=== PATIENT | male | born 1950 | race Caucasian/White ===

== ENCOUNTER 2017-05-27 06:27 | Day surgery (SDC) | payer OTHER ==
[2017-05-27] MEDS ORDERED: Bupivacaine 0.5%/EPINEPHrine 1:200,000 50 ML MDV ONE (06:43)
[2017-05-27] MEDS ORDERED: ceFAZolin 2 GM in Premix Bag 1 BAG IV ONE (07:00)
[2017-05-27] MEDS ORDERED: ceFAZolin 2 GM in Sodium Chloride 0.9% 50 ML IV ONE (07:00)
[2017-05-27] MEDS ORDERED: metroNIDAZOLE/Normal Saline 500 MG in Premix Bag 1 BAG IV ONE (07:00)
[2017-05-27] MEDS ORDERED: Sodium Chloride 0.9% 1,000 ML IV SCH (07:00)
[2017-05-27] MEDS ORDERED: fentaNYL 250 MCG/5 ML SDV ONE (07:13)
[2017-05-27] MEDS ORDERED: Propofol 200 MG/20 ML SDV ONE (07:14)
[2017-05-27] MEDS ORDERED: Succinylcholine/Normal Saline 200 MG/10 ML Syringe ONE (07:14)
[2017-05-27] MEDS ORDERED: Neostigmine Methylsulfate 1 MG/ML 5 ML Syringe ONE (07:14)
[2017-05-27] MEDS ORDERED: Rocuronium 50 MG/5 ML Vial ONE (07:14)
[2017-05-27] MEDS ORDERED: Dexamethasone 4 MG/ML SDV ONE (07:14)
[2017-05-27] MEDS ORDERED: Ondansetron 4 MG/2 ML SDV ONE (07:14)
[2017-05-27] MEDS ORDERED: fentaNYL 100 MCG/2 ML SDV IVPUSH ONE (09:08)
[2017-05-27] MEDS ORDERED: hydrOXYzine HCl 100 MG/2 ML SDV IM ONE (09:30)
[2017-05-27] MEDS ORDERED: oxyCODONE 5 MG Tab PO ONE (10:10)
[2017-05-27 10:34] VITALS: BP 162/74
--- NOTE | 2017-05-27 10:52 | OR ---
DATE OF PROCEDURE: 05/27/2017 PROCEDURE: Open inguinal hernia repair, right. COMPLICATIONS: None. SURGICAL NURSE: None. PREOPERATIVE DIAGNOSIS: Incarcerated hernia, right. RISKS: Risks, benefits, alternatives, limitations including infection, bleeding, and perforation of abdominal structures, recurrent surgery scar formation, other risks were explained to the patient and wished to proceed. PROCEDURE IN DETAIL: The patient was placed in supine position. A right curvilinear incision was made lateral to the pubic tubercle. This was over his area of hernia. This was carried down with electrocautery using 80. The external oblique aponeurosis was opened with a 15 blade. The hernia was readily identified and was actually quite large, requiring two extra-large plugs. Oralia drain was used to surround the cord structure. The large patches were sewn into place with overlay. No tension was noted on the cord structures. These were closed with multiple 0 Vicryl sutures. The superficial layers were then closed with 3-0 Vicryl for the external oblique aponeurosis, then 3-0 for the deep stitches with 4- 0 Vicryl for the skin and Dermabond. These layers were irrigated, 40 mL of local was applied. The patient tolerated the procedure well. Deonte Aldridge MD /[id number]
== END 2017-05-27 11:10 | disposition home or self-care (01) ==
LOC: JP.SDS 06:27
PROVIDERS: ATTEND Surgery
DX: K40.30 Unilateral inguinal hernia, with obstruction, without gangrene, not specified as recurrent (principal); I10 Essential (primary) hypertension; K21.9 Gastro-esophageal reflux disease without esophagitis; F41.9 Anxiety disorder, unspecified; Z87.891 Personal history of nicotine dependence
CPT/HCPCS: 36415; 49507; 80048; 85027; A9270; C1781; J0690; J1100; J2405; J2704; J3010; J3410; J7040; J7050